=== PATIENT | male | born 1990 | race Caucasian/White ===

== ENCOUNTER 2023-12-06 02:38 | Emergency (ER) | payer OTHER, MEDICAID, SELFPAY ==
[2023-12-06 03:08] VITALS: BP 112/66; PULSE 83; RESP 14; TEMP 36.7; O2SAT 98; BMI 20.7
--- NOTE | 2023-12-06 16:26 | ED.HA ---
HPI - Headache General Chief Complaint: Headache Stated Complaint: severe headache Time Seen by Provider: 12/06/23 04:50 Mode of arrival: Ambulatory History of Present Illness HPI Narrative: (patient LWBS, not seen by any provider, reported headache improved in [facility] per nursing) Related Data Home Medications Medication Instructions Recorded Confirmed No Known Home Medications 12/06/23 12/06/23 Allergies Allergy/AdvReac Type Severity Reaction Status Date / Time No Known Drug Allergies Allergy Verified 12/06/23 03:06 Patient History Social History Smoking Status: Former smoker Smoking Status: Former smoker alcohol intake frequency: other Substance Use Type: does not use Exam Initial Vital Signs Initial Vital Signs: Vital Signs Temperature 98.1 F 12/06/23 03:08 Pulse Rate 83 12/06/23 03:08 Respiratory Rate 14 12/06/23 03:08 Blood Pressure 112/66 12/06/23 03:08 Pulse Oximetry 98 12/06/23 03:08 Oxygen Delivery Method Room Air 12/06/23 03:08 Discharge Plan Departure Patient Disposition: Left Without Being Seen Clinical Impression: Patient left after triage Prescriptions: No Action No Known Home Medications
== END 2023-12-06 05:50 | disposition left against medical advice (07) ==
PROVIDERS: Emergency Provider Emergency Medicine
DX: R51.9 Headache, unspecified (principal)
CPT/HCPCS: 99281